=== PATIENT | male | born 1995 | race Two or more races ===

== ENCOUNTER 2022-02-01 21:53 | Inpatient (IN) | payer BC ==
[~2022-02-01] VITALS: Ht 180.3 cm; Wt 79.1 kg
[2022-02-01] MEDS ORDERED: PERTUSS(ACELL),DIPH,TET VAC/PF 0.5 ML SYRINGE IM. ONE (23:00)
[2022-02-01 23:08] LABS: BASOPHILS % (AUTO) 0.8 % (0.0-2.0); EOSINOPHILS % (AUTO) 0.1 % (1.0-6.0); HEMATOCRIT 41.4 % (41-53); HEMOGLOBIN 14.1 g/dL (13.5-17.5); LYMPHOCYTES # (AUTO) 0.9 K/uL (1.0-4.8); LYMPHOCYTES % (AUTO) 10.4 % (22.0-44.0); MEAN CORPUSCULAR HEMOGLOBIN 29.4 pg (26.0-34.0); MEAN CORPUSCULAR HGB CONC 34.1 G/dL (31.0-37.0); MEAN CORPUSCULAR VOLUME 86 fL (80-100); MONOCYTES # (AUTO) 0.5 K/uL (0.1-1.0); MONOCYTES % (AUTO) 5.9 % (2.0-9.0); NEUTROPHILS # (AUTO) 7.2 K/uL (1.8-7.7); NEUTROPHILS % (AUTO) 82.8 % (40.0-70.0); PLATELET COUNT (AUTO) 357 K/uL (150-450); RED CELL DISTRIBUTION WIDTH 12.3 % (11.5-14.5)
[2022-02-01 23:26] LABS: ANION GAP 12 mmol/L (8-16); CALCIUM, TOTAL 9.3 mg/dL (8.8-10.5); CARBON DIOXIDE 27 mmol/L (22-29); CHLORIDE 103 mmol/L (98-107); CREATININE 0.86 mg/dL (0.60-1.30); GLOMERULAR FILTR. RATE CALC > 60 mL/min (>60); GLUCOSE,RANDOM 99 mg/dL (70-110); POTASSIUM 3.8 mmol/L (3.5-5.1); SODIUM SERUM 142 mmol/L (136-145); UREA NITROGEN, BLOOD 12 mg/dL (7-18)
[2022-02-01 23:28] LABS: ALANINE AMINOTRANSFERASE 31 U/L (12-78); ALBUMIN 4.6 g/dL (3.4-5.0); ALKALINE PHOSPHATASE 96 U/L (46-116); ASPARTATE AMINOTRANSFERASE 26 U/L (15-37); BILIRUBIN,TOTAL 0.2 mg/dL (0.1-1.0); TOTAL PROTEIN, SERUM 8.1 g/dL (6.4-8.2)
[2022-02-01 23:56] LABS: AMPHET/METH SCREEN,URINE NEGATIVE (NEGATIVE); BARBITURATE SCREEN, URINE NEGATIVE (NEGATIVE); BENZODIAZEPINES SCREEN,URINE NEGATIVE (NEGATIVE); CANNABINOID SCREEN,URINE POSITIVE (NEGATIVE); COCAINE SCREEN,URINE NEGATIVE (NEGATIVE); METHADONE SCREEN, URINE NEGATIVE (NEGATIVE); OPIATE SCREEN,URINE NEGATIVE (NEGATIVE)
[2022-02-01 23:59] LABS: PHENCYCLIDINE SCREEN,URINE NEGATIVE (NEGATIVE)
[2022-02-02] MEDS ORDERED: DIAZEPAM 5 MG/ML 2 ML SYRINGE IM ONE (00:45)
[2022-02-02] MEDS ORDERED: DiphenhydrAMINE HCL 50 MG/ML VIAL IM ONE (00:45)
[2022-02-02] MEDS ORDERED: HALOPERIDOL LACTATE 5 MG/ML VIAL IM ONE (00:45)
[2022-02-02 01:00] LABS: COVID AG,FIA SOURCE NASOPHARYNGEAL
[2022-02-02] MEDS ORDERED: HALOPERIDOL 5 MG TABLET PO ONE (01:00)
[2022-02-02] MEDS ORDERED: LORazepam 1 MG TABLET PO ONE (01:00)
[2022-02-02] MEDS: LORazepam 2 MG TABLET PO PRN ×2 (14:34→23:56)
[2022-02-02] MEDS: HALOPERIDOL 5 MG TABLET PO PRN (14:35)
[2022-02-03] MEDS: ZOLPIDEM TARTRATE 10 MG TABLET PO PRN (00:55)
[2022-02-03 01:28] VITALS: BP 151/88
[2022-02-03 08:00] VITALS: BP 160/96
[2022-02-03] MEDS ORDERED: ACETAMINOPHEN 325 MG TABLET PO PRN (13:15)
[2022-02-03] MEDS ORDERED: GuaiFENesin/D-METHORPHAN [SUGAR-FREE] 200-20MG/10 ML SYRUP UDCUP PO PRN (13:15)
[2022-02-03] MEDS ORDERED: ALBUTEROL SULFATE HFA 90 MCG/PUFF 8 GM INHALER IH PRN (13:15)
[2022-02-03] MEDS ORDERED: ONDANSETRON HCL 4 MG TABLET PO PRN (13:15)
[2022-02-03] MEDS ORDERED: LOPERAMIDE HCL 2 MG CAPSULE PO PRN (13:15)
[2022-02-03] MEDS ORDERED: CloNIDine HCL 0.1 MG TABLET PO PRN (13:15)
[2022-02-03] MEDS ORDERED: MAG HYDROX/AL HYDROX/SIMETH ES 30 ML SUSPENSION UDCUP PO PRN (13:15)
[2022-02-03] MEDS ORDERED: NICOTINE 14 MG/24 HOUR PATCH TD PRN (13:15)
[2022-02-03] MEDS ORDERED: IBUPROFEN 400 MG TABLET PO PRN (13:15)
[2022-02-03] MEDS: LORazepam 2 MG TABLET PO PRN ×2 (13:15→19:33)
[2022-02-03] MEDS ORDERED: DOCUSATE SODIUM 100 MG CAPSULE PO PRN (13:15)
[2022-02-03] MEDS ORDERED: PETROLATUM,WHITE 28 GM JELLY TP PRN (13:15)
[2022-02-03] MEDS ORDERED: MAGNESIUM HYDROXIDE SUSPENSION 30 ML UDCUP PO PRN (13:15)
[2022-02-03] MEDS: HALOPERIDOL 5 MG TABLET PO PRN ×2 (15:20→19:33)
[2022-02-03 17:05] VITALS: BP 131/96
[2022-02-04] MEDS: ZOLPIDEM TARTRATE 10 MG TABLET PO PRN (02:42)
[2022-02-04 08:54] VITALS: BP 143/57
== END 2022-02-04 11:30 | disposition home or self-care (01) | DRG 881 ==
LOC: EMS 21:53 → 3EI 02-02 18:05 → UNDOADMIN 02-02 18:05 → 3EI 02-03 01:15
PROVIDERS: ADMIT Psychiatry & Neurology Psychiatry; ATTEND Psychiatry & Neurology Psychiatry
DX: F32.9 Major depressive disorder, single episode, unspecified (principal); S21.112A Laceration without foreign body of left front wall of thorax without penetration into thoracic cavity, initial encounter; G47.00 Insomnia, unspecified; F29 Unspecified psychosis not due to a substance or known physiological condition; F10.10 Alcohol abuse, uncomplicated; F12.10 Cannabis abuse, uncomplicated; Z20.822 Contact with and (suspected) exposure to COVID-19; Y90.4 Blood alcohol level of 80-99 mg/100 ml; Z87.891 Personal history of nicotine dependence; X83.8XXA Intentional self-harm by other specified means, initial encounter; Y93.89 Activity, other specified; Y92.89 Other specified places as the place of occurrence of the external cause; Y99.8 Other external cause status; Z79.899 Other long term (current) drug therapy
CPT/HCPCS: 80053; 85025; 90715; 99285; G0480; J1200; J1630